=== PATIENT | male | born 1980 | race Caucasian/White ===

== ENCOUNTER 2017-12-18 09:28 | Emergency (ER) | payer OTHER ==
[~2017-12-18] VITALS: Ht 167.6 cm; Wt 86.3 kg
[2017-12-18 09:31] VITALS: BP 124/80
[2017-12-18] MEDS ORDERED: hydrOXyzine 50MG TABLET ONE (10:12)
[2017-12-18 10:34] LABS: ALANINE AMINOTRANSFERASE 68 U/L (12-78); ALBUMIN 3.9 g/dL (3.4-5.0); ANION GAP 7 mmol/L (5-15); CALCIUM 8.5 mg/dL (8.5-10.1); CHLORIDE 104 mmol/L (98-107); CREATININE 0.93 mg/dL (0.7-1.3)
[2017-12-18 10:36] LABS: ALKALINE PHOSPHATASE 70 U/L (45-117); BILIRUBIN,TOTAL 0.4 mg/dL (0.2-1.0); MD YES; MEAN CORPUSCULAR HEMOGLOBIN 29.3 pg (27.5-34.5); MEAN CORPUSCULAR HGB CONC 34.3 g/dL (33.2-36.2); MEAN CORPUSCULAR VOLUME 85.2 fL (81-97); MEAN PLATELET VOLUME 9.1 fL (7.4-10.4); PLATELET COUNT 148 x10^3/uL (130-400); RED BLOOD COUNT 5.77 x10^6/uL (4.38-5.82); RED CELL DISTRIBUTION WIDTH 12.9 % (9.4-14.8); TOTAL PROTEIN 7.8 g/dL (6.4-8.2)
[2017-12-18 10:39] LABS: MONOS#(MANUAL) 0.53 x10^3/uL (0.3-2.7); MONOS% (MANUAL) 14 % (2-9); SEG#(MANUAL) 1.22 x10^3/uL (1.8-6.8); SEGS% (MANUAL) 32 % (42-75)
[2017-12-18 10:41] LABS: <PLATELET ESTIMATE> ADEQUATE; <PLT MORPHOLOGY> NORMAL PLT MORPH; <RBC MORPHOLOGY> NORMAL
[2017-12-18 10:43] LABS: LYMPH#(MANUAL) 1.82 x10^3/uL (1-3.4); LYMPHS% (MANUAL) 48 % (22-44); REACTIVE LYMPHS % (MANUAL) 6 % (0-0)
[2017-12-18 10:44] LABS: REACTIVE LYMPHS # (MANUAL) 0.23 x10^3/uL (0-0)
== END 2017-12-18 11:05 | disposition home or self-care (01) ==
LOC: ED 10:59
DX: B01.9 Varicella without complication (principal)
CPT/HCPCS: 36415; 80053; 85025; 99284; Q0177